=== PATIENT | male | born 1965 | race Caucasian/White ===

== ENCOUNTER 2018-02-05 05:40 | Day surgery (SDC) | payer OTHER ==
[2018-01-29 10:15] VITALS: BMI 21.5
--- NOTE | 2018-02-04 15:12 | P.GSHP ---
History of Present Illness H&P Date: 02/04/18 Chief Complaint: Right inguinal hernia recurrent 52-year-old male known to our service. Patient has a history of previous open repair right inguinal hernia. Patient developed postoperative mesh infection requiring surgical drainage and removal of infected mesh. Recently the patient has had a bulge and mild pain in the right groin. He does have a history of chronic right groin pain as a result of his previous operative repair. In the office he was found to have a recurrent reducible inguinal hernia. Scheduled for operative repair tomorrow. Past Medical History Past Medical History: GERD/Reflux, Osteoarthritis (OA) Additional Past Medical History / Comment(s): migraine headaches, kidney stones History of Any Multi-Drug Resistant Organisms: None Reported Past Surgical History: Hernia Repair Additional Past Surgical History / Comment(s): colonoscopy, surgery for kidney stones, hemorrhoidectomy Past Anesthesia/Blood Transfusion Reactions: No Reported Reaction Smoking Status: Former smoker - Past Family History Mother Family Medical History: No Reported History Medications and Allergies Home Medications Medication Instructions Recorded Confirmed Type Butalb/APAP/Caff 50-325-40Mg 1 tab PO Q4H PRN 01/29/18 01/29/18 History [Fioricet 50-325-40] Cholecalciferol [Vitamin D3] 1,000 unit PO DAILY 01/29/18 01/29/18 History Omeprazole [PriLOSEC] 20 mg PO AC-BID PRN 01/29/18 01/29/18 History Allergies Allergy/AdvReac Type Severity Reaction Status Date / Time No Known Allergies Allergy Verified 01/29/18 09:46 Surgical - Exam Physical exam: General: Well-developed, well-nourished HEENT: Normocephalic, sclerae nonicteric Abdomen: Nontender, nondistended, reducible right inguinal hernia Extremities: No edema Neuro: Alert and oriented Assessment and Plan (1) Recurrent right inguinal hernia Narrative/Plan: Will proceed with laparoscopic da Elizabeth assisted repair right inguinal hernia with mesh, possible bilateral. Risks of bleeding, infection, recurrence, bladder and bowel injury, numbness, nerve injury, conversion to an open procedure were discussed with the patient. The patient understands and wishes to proceed. Status: Acute Code(s): K40.91 - UNILATERAL INGUINAL HERNIA, W/O OBST OR GANGRENE, RECURRENT SNOMED Code(s): 493594732
[~2018-02-05 05:40] MED LIST: HEPARIN SODIUM,PORCINE 5,000 UNIT/ML 1 ML VIAL SQ ONE; MORPHINE SULFATE 2 MG/ML SYRINGE IV PRN; ceFAZolin IN SWFI 2 GM/20 ML SYRINGE IVP ONE
[2018-02-05] MEDS: LACTATED RINGERS 1,000 ML IV SCH (06:28)
[2018-02-05] MEDS ORDERED: DEXAMETHASONE SOD PHOSPHATE 10 MG/ML 1 ML VIAL IV ONE (06:55)
[2018-02-05] MEDS ORDERED: ONDANSETRON 4 MG/2 ML VIAL IVP ONE ×2 (06:55→14:34)
[2018-02-05] MEDS ORDERED: MIDAZOLAM 2 MG/2 ML VIAL ONE (07:39)
[2018-02-05] MEDS ORDERED: ROCURONIUM BROMIDE 10 MG/ML 10 ML VIAL IV ONE (07:39)
[2018-02-05] MEDS ORDERED: fentaNYL (PF) 50 MCG/ML 2 ML AMP ONE (07:39)
[2018-02-05] MEDS ORDERED: LIDOCAINE 1% INJ 10MG/ML (20 ML MDV) ONE (07:39)
[2018-02-05] MEDS ORDERED: GLYCOPYRROLATE 0.2 MG/ML 2 ML VIAL ONE (07:39)
[2018-02-05] MEDS ORDERED: SUCCINYLCHOLINE CHLORIDE 100 MG/5 ML SYR IV ONE (07:39)
[2018-02-05] MEDS ORDERED: NEOSTIGMINE 1 MG/ML 10 ML VIAL ONE (07:39)
[2018-02-05] MEDS ORDERED: PROPOFOL 10 MG/ML 20 ML VIAL IV ONE (07:39)
[2018-02-05] MEDS ORDERED: BUPIVACAIN-EPI 0.25%-1:200,000 30 ML VIAL SQ ONE ×2 (08:24→09:11)
[2018-02-05] MEDS: HYDROmorphone 0.5 MG/0.5 ML SYRINGE IVP PRN ×4 (09:28→10:23)
[2018-02-05] MEDS ORDERED: HYDROcodone/APAP 5-325MG 1 EACH TAB PO PRN (09:28)
[2018-02-05] MEDS ORDERED: NALOXONE 0.4 MG/ML 1 ML VIAL IV PRN (09:28)
--- NOTE | 2018-02-05 09:32 | P.OP ---
Date of Procedure: 02/05/18 Procedure(s) Performed: PREOPERATIVE DIAGNOSIS: Recurrent right inguinal hernia POSTOPERATIVE DIAGNOSIS: Same PROCEDURE: Laparoscopic repair recurrent right inguinal hernia with the da Elizabeth robot assistance with mesh SURGEON: Kam EBL: Minimal ANESTHESIA: General COMPLICATIONS: None OPERATIVE PROCEDURE: Patient was placed in the operating table in the supine position. The patient was placed under general anesthesia. The patient was then placed in lithotomy. The abdomen was prepped and draped in usual sterile fashion. A small curvilinear supraumbilical incision was made. The fascia was retracted anteriorly with Dennys forceps. The Veress needle was inserted. The saline drop test was normal. Insufflation took place to 15 mmHg. a 5 mm trocar was advanced into the perineal cavity. This was later switched to a 12 mm trocar. 2 additional 8 mm trochars were placed in the right upper quadrant and left upper quadrant under visualization. The robotic arms were then brought in and docked into place. The fenestrated bipolar was used in the left arm and the laparoscopic [place] was utilized in the right arm. A 30 12 mm scope was used in the up position. The peritoneal cavity was inspected. The patient had a large recurrent right indirect inguinal hernia. The peritoneum was incised in a horizontal fashion cephalad to the internal inguinal ring. Following that careful dissection of the preperitoneal space took place. This took place using both electrocautery, sharp dissection but primarily blunt dissection. Visualization of the pubic tubercle and Tee's ligament took place medially. Full dissection took place laterally as well. The hernia sac was fully dissected. Once we had adequate space the 15 x 10 progrip mesh was advanced into the preperitoneal space and flattened out appropriately to cover all potential hernia sites. No sutures were used. The peritoneal defect was then closed using a locking 2-0 VLok suture. I then used a 3-0 Vicryl suture to tack the redundant peritoneum anteriorly. The pneumoperitoneum was then evacuated. The fascia at the 12 mm site was closed using the Flex Vazquez technique and an 0 Vicryl stitch. The skin of all 3 sites was closed using a 4- 0 Monocryl stitch. Dermabond was then applied. DISPOSITION: Stable to recovery room
[2018-02-05 09:42] VITALS: TEMP 97.8
[2018-02-05 10:14] VITALS: RESP 16
[2018-02-05] MEDS ORDERED: LACTATED RINGERS 1,000 ML IV ONE (10:21)
[2018-02-05] MEDS ORDERED: SCOPOLAMINE 1.5MG/72HR PATCH TRANSDERM ONE (11:44)
[2018-02-05] MEDS ORDERED: LACTATED RINGERS 500 ML IV ONE (13:06)
[2018-02-05] MEDS ORDERED: KETOROLAC 30 MG/ML 1 ML VIAL IVP ONE (14:34)
[2018-02-05 15:17] VITALS: BP 146/90; PULSE 71
[2018-02-05] MEDS ORDERED: HALOPERIDOL LACTATE 5 MG/ML 1 ML VIAL IVP ONE (16:00)
== END 2018-02-05 15:39 | disposition home or self-care (01) ==
LOC: OR 05:40
PROVIDERS: ATTEND Surgery
DX: K40.91 Unilateral inguinal hernia, without obstruction or gangrene, recurrent (principal); G89.29 Other chronic pain; K21.9 Gastro-esophageal reflux disease without esophagitis; M19.90 Unspecified osteoarthritis, unspecified site; G43.909 Migraine, unspecified, not intractable, without status migrainosus; Z87.442 Personal history of urinary calculi; Z87.891 Personal history of nicotine dependence
CPT/HCPCS: 49651; C1781; J1644; J1100; J2405; J1885; J1170; J0690

== ENCOUNTER → 2018-05-13 | Outpatient (CLI) | payer OTHER ==
--- NOTE | 2018-05-13 13:17 | MR ---
EXAMINATION TYPE: MR angio head wo con DATE OF EXAM: 05/13/2018 COMPARISON: MR brain same date HISTORY: Headache TECHNIQUE: Time of flight images focusing on the [place] were performed without contrast. 3- D postprocessing performed on additional workstation. FINDINGS: Anterior posterior circulation are patent, vertebral arteries are codominant. No evident an eurysm, dissection, embolus. No vascular malformation. IMPRESSION: Normal [place] MRA
--- NOTE | 2018-05-13 13:48 | MR ---
MR brain without contrast HISTORY: Headache Multiplanar multisequence imaging obtained through the brain. Correlation to MRI/MRA brain same date There is no restricted diffusion present. No hemorrhage or hydrocephalus. Cerebellopontine angles, co rpus callosum, pituitary, cervical medullary junction are normal. There are normal vascular flow void s. The orbits show symmetric appearance. Brain signal is remarkable for scattered hyperintensities on inversion recovery and T2-weighted sequences, approximately 3-5 lesions are present, largest lesion only 3 to 4 mm. Mild mucosal disease present within the ethmoid air cells, frontal sinus. Orbits are symmetric. IMPRESSION: Nonspecific white matter demyelination could be related to migraine headaches, hypertensi on, vasculitis, multiple sclerosis not excluded.
== END | disposition home or self-care (01) ==
LOC: RADMRIMAIN 10:02
PROVIDERS: ATTEND Internal Medicine
DX: R90.89 Other abnormal findings on diagnostic imaging of central nervous system (principal); R51 Headache
CPT/HCPCS: 70544; 70551